=== PATIENT | female | born 1975 | race Caucasian/White ===

== ENCOUNTER → 2016-03-19 | Outpatient (CLI) | payer OTHER ==
[2016-03-19 18:35] LABS: BASO % 0.5 % (0.0-1.0); EOS # 0.1 K/mm3 (0.0-0.50); EOS % 1.7 % (0.0-3.0); LARGE UNSTAINED CELL # 0.1 K/mm3 (0.0-0.4); LARGE UNSTAINED CELL % 1.1 % (0.0-4.0); LYMPH # 1.8 K/mm3 (1.5-4.5); LYMPH % 26.3 % (24.0-44.0); MEAN CORPUSCULAR HGB CONC 34.3 g/dl (32.0-36.5); MEAN CORPUSCULAR VOLUME 87.5 fl (80.0-96.0); MONO # 0.3 K/mm3 (0.0-0.8); MONO % 4.2 % (0.0-5.0); NEUTROPHILS # 4.4 K/mm3 (1.8-7.7); NEUTROPHILS % 66.3 % (36.0-66.0); PLATELET COUNT, AUTOMATED 185 k/mm3 (150-450); RED CELL DISTRIBUTION WIDTH 11.8 % (11.5-14.5); WHITE BLOOD COUNT 6.7 K/mm3 (4.0-10.0)
[2016-03-19 19:05] LABS: FREE T4 0.9 NG/DL (0.76-1.46)
[2016-03-19 19:10] LABS: MICROSCOPIC INDICATED? MAN NO (NO)
== END ==
LOC: M SMT 14:26
PROVIDERS: ATTEND Family Medicine
DX: L60.8 Other nail disorders (principal); N39.3 Stress incontinence (female) (male)

== ENCOUNTER → 2016-09-24 | Outpatient (CLI) | payer OTHER | LOC: M SMT 09:24 | PROVIDERS: ATTEND Family Medicine | DX: M21.611 Bunion of right foot (principal) ==

== ENCOUNTER → 2016-10-14 | Outpatient (CLI) | payer OTHER ==
--- NOTE | 2016-10-14 11:45 | REPMRS ---
Patient History The patient states she had a clinical breast exam in 06/23.Family history of prostate cancer in maternal grandfather at age 60 and endometrial cancer in mother at age 40. Taking hormonal contraceptives for 4 years. Digital Mammo Screening Bilat: October 14, 2016 - Exam #: [id number] Bilateral CC and MLO view(s) were taken. Technologist: Shala De La Cruz, Technologist No prior studies available for comparison. FINDINGS: The breast tissue is extremely dense which could obscure a lesion on mammography. There is no evidence of cancer on this mammogram. ASSESSMENT: BI-RADS/ACR category 2 mammogram. Benign finding(s). Recommendation Routine screening mammogram of both breasts in 1 year (for women over age 40). This mammogram was interpreted with the aid of an FDA-approved computer-aided dectection system. Electronically Signed By: Uday Estrada MD 10/14/16 [id number]
== END ==
LOC: M RAD 10:38
PROVIDERS: ATTEND Family Medicine
DX: Z12.31 Encounter for screening mammogram for malignant neoplasm of breast (principal)

== ENCOUNTER → 2016-10-27 | Outpatient (CLI) | payer OTHER ==
[2016-10-27 14:15] LABS: FREE T4 0.97 NG/DL (0.76-1.46)
== END ==
LOC: M SMT 10:13
PROVIDERS: ATTEND Advanced Practice Midwife
DX: N92.6 Irregular menstruation, unspecified (principal)

== ENCOUNTER → 2016-11-11 | Outpatient (CLI) | payer OTHER ==
--- NOTE | 2016-11-11 16:48 | REP ---
Pelvic sonography: History: Abnormal menstruation. Findings: Transabdominal and transvaginal imaging is acquired. Uterine dimensions are normal at 8.1 x 3.3 x 5.0 cm. Endometrial echo 0.3 cm thick. There is an echogenic linear focus in the endometrium consistent with the IUD in position. No focal uterine mass is seen. No free fluid is noted. The overall dimensions of the right ovary at 2.5 x 1.8 x 1.5 cm. Resistive index in the right ovary is 0.73. The left ovary measures 2.5 x 1.4 x 2.1 cm. Resistive index 0.4. There is a 1 cm hypoechoic cyst in the left ovary consistent with a hemorrhagic follicle. Impression: IUD in good position. No significant abnormality noted. Signed by Jv Atwood MD 11/12/2016 07:58 A
== END ==
LOC: M RAD 10:01
PROVIDERS: ATTEND Advanced Practice Midwife
DX: N92.0 Excessive and frequent menstruation with regular cycle (principal)

== ENCOUNTER → 2017-04-17 | Outpatient (CLI) | payer OTHER | LOC: M RAD 11:20 | DX: R10.9 Unspecified abdominal pain (principal) ==

== ENCOUNTER → 2017-05-08 | Outpatient (CLI) | payer OTHER ==
[2017-05-08 13:51] LABS: HEMATOCRIT 45.3 % (36.0-47.0); HEMOGLOBIN 15.4 g/dl (12.0-16.0); MEAN CORPUSCULAR HEMOGLOBIN 29.2 pg (27.0-33.0); PLATELET COUNT, AUTOMATED 205 10^3/uL (150-450); RED BLOOD COUNT 5.27 10^6/uL (4.00-5.40); RED CELL DISTRIBUTION WIDTH 12.1 % (11.5-14.5)
== END ==
LOC: M SMT 09:52
DX: N92.6 Irregular menstruation, unspecified (principal)
CPT/HCPCS: 85027

== ENCOUNTER → 2017-07-22 | Outpatient (REF) | payer OTHER ==
[2017-07-22 21:06] LABS: CHLAMYDIA DNA AMPLIFICATION NEGATIVE (NEGATIVE); GC DNA AMPLIFICATION NEGATIVE (NEGATIVE)
== END ==
LOC: M LAB REF 17:24
DX: N39.46 Mixed incontinence (principal)

== ENCOUNTER 2017-12-29 14:14 | Emergency (ER) | payer OTHER ==
[2017-12-29 15:40] LABS: BASO % 0.4 % (0.0-1.0); EOS # 0.1 10^3/uL (0.0-0.50); EOS % 1.4 % (0.0-3.0); HEMATOCRIT 46.3 % (36.0-47.0); HEMOGLOBIN 15.6 g/dl (12.0-15.5); IMMATURE GRANULOCYTE % 0.1 % (0-3.0); LYMPH # 1.8 10^3/uL (1.5-4.5); LYMPH % 25.4 % (24.0-44.0); MEAN CORPUSCULAR HEMOGLOBIN 29.6 pg (27.0-33.0); MEAN CORPUSCULAR HGB CONC 33.7 g/dl (32.0-36.5); MEAN CORPUSCULAR VOLUME 87.9 fl (80.0-96.0); MONO # 0.5 10^3/uL (0.0-0.8); MONO % 6.6 % (0.0-5.0); NEUTROPHILS # 4.7 10^3/uL (1.8-7.7); NEUTROPHILS % 66.1 % (36.0-66.0); PLATELET COUNT, AUTOMATED 224 10^3/uL (150-450); RED BLOOD COUNT 5.27 10^6/uL (4.00-5.40); RED CELL DISTRIBUTION WIDTH 11.9 % (11.5-14.5); WHITE BLOOD COUNT 7.1 10^3/uL (4.0-10.0)
[2017-12-29] MEDS: NORCO, ANEXSIA 5/325MG TABLET (HYDROcodone/ACETAMINOPHEN) PO (15:41)
[2017-12-29 16:27] LABS: BLOOD UREA NITROGEN 13 MG/DL (7-18)
[2017-12-29 16:28] LABS: CALCIUM LEVEL 9.2 MG/DL (8.5-10.1); CARBON DIOXIDE LEVEL 25 MEQ/L (21-32); CHLORIDE LEVEL 110 MEQ/L (98-107); CREATININE FOR GFR 0.86 MG/DL (0.55-1.30); GLOMERULAR FILTRATION RATE > 60.0 (>58); GLUCOSE, FASTING 84 MG/DL (70-100); MAGNESIUM LEVEL 2.4 MG/DL (1.8-2.4); SODIUM LEVEL 142 MEQ/L (136-145)
[2017-12-29 16:29] LABS: ANION GAP 7 MEQ/L (8-16)
== END 2017-12-29 17:09 | disposition home or self-care (01) ==
LOC: M ED 14:14
DX: S86.801A Unspecified injury of other muscle(s) and tendon(s) at lower leg level, right leg, initial encounter (principal); Y93.9 Activity, unspecified
CPT/HCPCS: 93971

== ENCOUNTER → 2018-07-01 | Outpatient (CLI) | payer OTHER ==
[~2018-07-01] MED LIST: DEXI60CA2; HYDR-3715 PO; MYRB25TA; NORE5TAB
[2018-07-01 10:39] LABS: BASO % 0.6 % (0.0-1.0); EOS # 0.1 10^3/uL (0.0-0.50); EOS % 2.2 % (0.0-3.0); HEMATOCRIT 44.2 % (36.0-47.0); HEMOGLOBIN 14.7 g/dl (12.0-15.5); LYMPH # 1.5 10^3/uL (1.5-4.5); MEAN CORPUSCULAR HGB CONC 33.3 g/dl (32.0-36.5); MEAN CORPUSCULAR VOLUME 87.2 fl (80.0-96.0); MONO # 0.5 10^3/uL (0.0-0.8); MONO % 7.8 % (0.0-5.0); NEUTROPHILS # 4.1 10^3/uL (1.8-7.7); NEUTROPHILS % 65.1 % (36.0-66.0); PLATELET COUNT, AUTOMATED 180 10^3/uL (150-450); RED BLOOD COUNT 5.07 10^6/uL (4.00-5.40); WHITE BLOOD COUNT 6.3 10^3/uL (4.0-10.0)
[2018-07-01 10:48] LABS: INR 1.13; PARTIAL THROMBOPLASTIN TIME 26.7 SECONDS (25.4-37.6); PROTHROMBIN TIME 14.7 SECONDS (12.1-14.4)
[2018-07-01 10:52] LABS: ALBUMIN 3.8 GM/DL (3.2-5.2); ALT/SGPT 25 U/L (12-78); BILIRUBIN,TOTAL 0.7 MG/DL (0.2-1.0); BLOOD UREA NITROGEN 18 MG/DL (7-18); CALCIUM LEVEL 8.5 MG/DL (8.5-10.1); CARBON DIOXIDE LEVEL 29 MEQ/L (21-32); CHLORIDE LEVEL 109 MEQ/L (98-107); CHOLESTEROL LEVEL 162 MG/DL (<200); CHOLESTEROL RISK RATIO 3.951 (<5); FREE T4 0.77 NG/DL (0.76-1.46); GLOMERULAR FILTRATION RATE > 60.0 (>58); GLUCOSE, FASTING 90 MG/DL (70-100); HDL CHOLESTEROL 41 MG/DL (>40); LDL CHOLESTEROL 99 MG/DL (<100); MAGNESIUM LEVEL 2.1 MG/DL (1.8-2.4); NON-HDL-C 121 MG/DL; POTASSIUM SERUM 4.7 MEQ/L (3.5-5.1); SODIUM LEVEL 144 MEQ/L (136-145); TOTAL PROTEIN 6.6 GM/DL (6.4-8.2); TRIGLYCERIDES LEVEL 109 MG/DL (<150)
== END ==
LOC: M SMT 08:09
PROVIDERS: ATTEND Physician Assistant
DX: Z01.818 Encounter for other preprocedural examination (principal); R00.2 Palpitations; Z13.220 Encounter for screening for lipoid disorders

== ENCOUNTER → 2018-07-22 | Outpatient (CLI) | payer OTHER ==
--- NOTE | 2018-07-22 07:58 | REPMRS ---
Patient History The patient states she had a clinical breast exam in May 2018.Family history of endometrial cancer at age 40 in mother, prostate cancer at age 60 in maternal grandfather. Taking hormonal contraceptives for 4 years. 2D only. Digital Mammo Screening Bilat: July 22, 2018 - Exam #: [id number] Bilateral CC and MLO view(s) were taken. Technologist: Adore Hodge, Technologist Prior study comparison: October 14, 2016, bilateral digital mammo screening bilat performed at [facility]. FINDINGS: The breast tissue is heterogeneously dense. This may lower the sensitivity of mammography. There is a moderate amount of heterogeneously dense fibroglandular tissue which is fairly symmetric. There is no interval development of dominant mass, architectural distortion, or clustered microcalcification typical of malignancy. There has been no change in the appearance of the mammogram from the prior studies. Assessment: BI-RADS/ACR category 1 mammogram. Negative Mammogram. Recommendation Routine screening mammogram of both breasts in 1 year (for women over age 40). This patient's Lifetime Breast Cancer RIsk is estimated at 7.4 %. This mammogram was interpreted with the aid of an FDA-approved computer-aided dectection system. Electronically Signed By: Soto Atwood MD 07/22/18 [id number]
== END ==
LOC: M RAD 06:57
PROVIDERS: ATTEND Family Medicine
DX: Z12.31 Encounter for screening mammogram for malignant neoplasm of breast (principal); Z80.49 Family history of malignant neoplasm of other genital organs; Z92.0 Personal history of contraception

== ENCOUNTER → 2018-12-06 | Outpatient (CLI) | payer OTHER ==
[~2018-12-06] MED LIST changes: +D3 U5000 PO; -DEXI60CA2; +DEXI60CA2 PO; +FLON1SPR NARES; +IBUP-1022 PO; +MAXA10TA14 PO; +MIRE1IUD IU; -MYRB25TA; +MYRB25TA PO; +NORC1TAB7 PO; +vitafusion PO
[2018-12-06 17:26] LABS: FREE T4 1.18 NG/DL (0.76-1.46); THYROID STIMULATING HORMONE 0.314 uIU/ML (0.358-3.740)
[2018-12-06 17:29] LABS: TOTAL 25(OH) VITAMIN D 59.5 NG/ML (30.0-100.0)
[2018-12-08 14:52] LABS: TISSUE TRANSGLUTAMINASE IgA <2 U/mL (0-3); TISSUE TRANSGLUTAMINASE IgG <2 U/mL (0-5); UNITSIGA FOR GLIADIN IGA 2 units (0-19); UNITSIGG FOR GLIADIN IGG 3 units (0-19)
== END ==
LOC: M SMT 13:25
PROVIDERS: ATTEND Family Medicine
DX: E03.9 Hypothyroidism, unspecified (principal); K59.00 Constipation, unspecified